=== PATIENT | female | born 1985 | race Caucasian/White ===

== ENCOUNTER 2017-04-22 11:09 | Inpatient (IN) | payer BC ==
[2017-04-22] MEDS ORDERED: LIDOCAINE HCL 50 ML VIAL PERI PRN (12:04)
[2017-04-22] MEDS ORDERED: RINGER'S SOLUTION,LACTATED 1,000 ML IV ONE (12:04)
[2017-04-22] MEDS: DEXTROSE 5%-LACTATED RINGERS 1,000 ML IV PRN ×2 (12:41→17:23)
[2017-04-22] MEDS ORDERED: OXYTOCIN/DEXTROSE 5%-WATER 30 UNITS/500 ML BAG IV ONE ×2 (13:00→21:35)
--- NOTE | 2017-04-22 13:39 | PN ---
Progess Note - Interim Narrative: 04/22/17 13:37 Patient rating her contractions 2 out of 10. Vital signs stable. FHT: 130 baseline, reassuring Contractions irregular Cervix: 09/10/-2, Smith bulb inserted and filled with 60 mL of sterile saline around 1230. Impression: Intrauterine at 41-1/7 weeks induction of labor for post dates with nonreassuring antepartum testing. Plan: Augment with low-dose Pitocin.
[2017-04-22] MEDS ORDERED: ONDANSETRON HCL/PF 2 MG/ML VIAL IV PRN (16:45)
[2017-04-22] MEDS ORDERED: BUPIVACAINE HCL/0.9 % NACL/PF 250 ML EP PRN (16:45)
[2017-04-22] MEDS ORDERED: NALOXONE HCL 1 MG/1 ML SYRG IV PRN (16:45)
[2017-04-22] MEDS ORDERED: fentaNYL CITRATE/PF 50 MCG/ML AMPUL IT SCH (16:45)
--- NOTE | 2017-04-22 16:50 | OR ---
Anesthesia Pre Procedure Eval Date of Service: 04/22/17 Pre Procedure Evaluation: Last Vital Signs Temp 36.5 C 04/30/16 13:33 Pulse Resp BP 152/76 04/30/16 13:33 Pulse Ox Anesthesia Pre Procedure Evaluation Heart Rate: 71 Blood Pressure: 107/71 Temperature: 36.5C Respiratory Rate: 16 SaO2: 99 DATE: 07/01/2017 TIME: 1645 INDICATIONS: Active labor, labor pain PAST MEDICAL HISTORY: Multipara patient in active labor requesting labor analgesia currently at 6 cm dilatation History of GERD: No History of smoking: No History of sleep apnea: No EXAM: Heart regular; lungs clear ASSESSMENT OF MEDICAL STATUS: Appropriate candidate for labor analgesia PLANNED PROCEDURE: Combination spinal epidural for labor analgesia Home Medications: HOME MEDICATIONS Ascorbic Acid [Vitamin C] 1,000 mg PO DAILY 04/22/17 [Last Taken Unknown] Calcium Carbonate [Calcium] 500 mg PO DAILY 04/22/17 [Last Taken Unknown] Ferrous Sulfate [Iron] 325 mg PO DAILY 04/22/17 [Last Taken Unknown] L.acidoph,Paracasei, B.lactis [Probiotic] 1 each PO DAILY 04/22/17 [Last Taken Unknown] [place]-3 Fatty Acids [[place]-3] 1,000 mg PO DAILY 04/22/17 [Last Taken Unknown] Vits96/Iron Fum/Folic [ S] 1 tab PO DAILY 04/22/17 [Last Taken Unknown]
[2017-04-22] MEDS ORDERED: fentaNYL CITRATE/PF 50 MCG/ML AMPUL ONE (16:55)
--- NOTE | 2017-04-22 17:10 | OR ---
Anesthesia Procedure Note - Anesthesia Procedure Note Date of Service: 04/22/17 Narrative: Vital Signs - Last Taken Temp 36.5 C 04/30/16 13:33 Pulse Resp BP 152/76 04/30/16 13:33 Pulse Ox 04/22/17 17:08 ANESTHESIA PROCEDURE NOTE Date of Procedure: 04/22/2017 Time of procedure: 1645. Performed by: JOEL Evans CRNA, MSN Bank Note Designer: Rohini Sifuentes RN. Preprocedure diagnosis: Active labor, labor pain. Post procedure diagnosis: Same. Procedure:Epidural for labor analgesia L4 5. Indications: Labor pain. Findings: See below. Details of the procedure: The patient was placed on the side of the bed in sitting positionand prepped with DuraPrep then draped in a sterile fashion. Lidocaine 1% was infiltrated to the skin and subcutaneous tissues at the level of the for 5 interspace. An 18-gauge Touhy needle was used to approach the epidural space with loss of resistance technique. Once loss of resistance was achieved a 24-gauge Pencan needle was passed through the epidural needle and CSF was contacted. After CSF returned fentanyl 20 mcg of fentanyl was injected in the spinal needle was removed the epidural catheter was then threaded approximately 4 cm in the epidural needle was removed. The catheter was taped in place and after careful aspiration 3 mL of 1.5% lidocaine with 1-200,000 epinephrine was injected without change in maternal heart rate or sensorium. . EBL: Minimal. Fluids: N/A. Specimen: N/A. Post procedure condition: The patient tolerated the procedure well with good relief. No complications were noted. Thank you for this consultation. Mark Rosas CRNA, WEIGHT CHECKER, MSN
[2017-04-22] MEDS ORDERED: SENNOSIDES 8.6 MG TABLET PO PRN (21:35)
[2017-04-22] MEDS ORDERED: oxyCODONE HCL/ACETAMINOPHEN 1 TAB TABLET PO PRN ×2 (21:35)
[2017-04-22] MEDS ORDERED: BENZOCAINE/MENTHOL 81 SPRAY CAN TP PRN (21:35)
[2017-04-22] MEDS ORDERED: BISACODYL 10 MG SUPP.RECT RC PRN (21:35)
[2017-04-22] MEDS ORDERED: GLYCERIN/WITCH HAZEL LEAF 40 APPL BOX TP PRN (21:35)
[2017-04-22] MEDS ORDERED: HYDROCORTISONE 30 APPL TUBE TP PRN (21:35)
--- NOTE | 2017-04-22 21:41 | OR ---
Operative Report - Dictated Report Narrative: Spontaneous vaginal delivery of viable male at 2115 on 04/22/2017 with Apgars 9 and 9, weighing 3736 g. Nuchal cord 1. Body cord 1. Cord clamping delayed approximately 1 minute Placenta delivered complete, intact, with three vessel cord Estimated blood loss: less than 50 ml Lacerations: None
[2017-04-23] MEDS: IBUPROFEN 800 MG TABLET PO PRN ×3 (02:06→21:12)
[2017-04-23] MEDS: LACTOBACILLUS ACIDOPHILUS 100 CAP BTL PO SCH (08:21)
[2017-04-23] MEDS: PRENATAL VITS96/IRON FUM/FOLIC 1 TAB TABLET PO SCH (08:22)
[2017-04-23] MEDS: CALCIUM CARBONATE 500 MG TAB.CHEW PO SCH (08:22)
[2017-04-23] MEDS: FERROUS SULFATE 325 MG TABLET PO SCH (08:22)
[2017-04-23] MEDS: OMEGA-3 FATTY ACIDS 1 CAP CAPSULE PO SCH (08:22)
[2017-04-23] MEDS: DOCUSATE SODIUM 100 MG CAPSULE PO SCH ×2 (08:22→21:13)
[2017-04-23] MEDS: ASCORBIC ACID 500 MG TABLET PO SCH (08:24)
--- NOTE | 2017-04-23 08:45 | PN ---
Subjective - Date and Time Seen Date: 04/23/17 Time: 08:45 Objective - Vitals Vitals: Last Vital Signs Temp 36.1 C L 04/23/17 07:29 Pulse 57 L 04/23/17 07:29 Resp 16 04/23/17 07:29 BP 113/69 04/23/17 07:29 Pulse Ox 99 04/23/17 07:29 Patient denies complaints. Lochia wnl Abdomen - soft, nontender Uterus - firm, at umbilicus - 1 No calf tenderness Impression: day #1 - s/p spontaneous vaginal delivery. Plan: Continue routine care Cauti Physician Documentation - Urinary Catheter Management Uretheral (Smith) Date of Insertion: 04/22/17 Time of Insertion: 17:30 Date of Removal: 04/22/17 Time of Removal: 21:05
[2017-04-24 08:03] VITALS: BP 119/70
[2017-04-24] MEDS: ASCORBIC ACID 500 MG TABLET PO SCH (08:32)
[2017-04-24] MEDS: FERROUS SULFATE 325 MG TABLET PO SCH (08:32)
[2017-04-24] MEDS: OMEGA-3 FATTY ACIDS 1 CAP CAPSULE PO SCH (08:32)
[2017-04-24] MEDS: PRENATAL VITS96/IRON FUM/FOLIC 1 TAB TABLET PO SCH (08:32)
[2017-04-24] MEDS: DOCUSATE SODIUM 100 MG CAPSULE PO SCH (08:32)
[2017-04-24] MEDS: LACTOBACILLUS ACIDOPHILUS 100 CAP BTL PO SCH (08:33)
[2017-04-24] MEDS: CALCIUM CARBONATE 500 MG TAB.CHEW PO SCH (08:33)
--- NOTE | 2017-04-24 09:08 | PN ---
Subjective - Date and Time Seen Date: 04/24/17 Time: 09:08 Objective - Vitals Vitals: Last Vital Signs Temp 36.6 C 04/24/17 07:45 Pulse 56 L 04/24/17 07:45 Resp 18 04/24/17 07:45 BP 119/70 04/24/17 07:45 Pulse Ox 100 04/24/17 07:45 Patient denies complaints. Lochia wnl Abdomen - soft, nontender Uterus - firm, at umbilicus - 2 No calf tenderness Impression: day #2 - s/p spontaneous vaginal delivery. Plan: Routine discharge instructions Cauti Physician Documentation - Urinary Catheter Management Uretheral (Smith) Date of Insertion: 04/22/17 Time of Insertion: 17:30 Date of Removal: 04/22/17 Time of Removal: 21:05
== END 2017-04-24 11:55 | disposition home or self-care (01) | DRG 775 ==
LOC: OB 11:09
PROVIDERS: ADMIT Obstetrics & Gynecology; ATTEND Obstetrics & Gynecology
PROC: 10E0XZZ Delivery of Products of Conception, External Approach (ICD-10-PCS; principal; 2017-04-22)
PROC: 4A1HXCZ Monitoring of Products of Conception, Cardiac Rate, External Approach (ICD-10-PCS; 2017-04-22)
PROC: 3E033VJ Introduction of Other Hormone into Peripheral Vein, Percutaneous Approach (ICD-10-PCS; 2017-04-22)
PROC: 00HU33Z Insertion of Infusion Device into Spinal Canal, Percutaneous Approach (ICD-10-PCS; 2017-04-22)
DX: O48.0 Post-term pregnancy (principal); O99.02 Anemia complicating childbirth; D50.8 Other iron deficiency anemias; O69.81X0 Labor and delivery complicated by cord around neck, without compression, not applicable or unspecified; O76 Abnormality in fetal heart rate and rhythm complicating labor and delivery; Z3A.41 41 weeks gestation of pregnancy; Z37.0 Single live birth

== ENCOUNTER 2017-08-28 22:30 | Emergency (ER) | payer BC ==
--- NOTE | 2017-08-28 22:52 | ERNOTE ---
Dyspnea - General Presenting Symptoms: shortness of breath Time Seen by Provider: 08/28/17 22:44 Source: patient Exam Limitations: no limitations - Immun/Allergies/Home Medications Immunizations: IMMUNIZATION HX Immunizations Up to Date Yes History of Influenza Vaccine No Hx Pneumococcal Vaccination No Allergies/Adverse Reactions: Allergies sulfamethoxazole [From Bactrim] Allergy (Verified 08/28/17 22:37) trimethoprim [From Bactrim] Allergy (Verified 08/28/17 22:37) Home Medications: HOME MEDICATIONS Ascorbic Acid [Vitamin C] 1,000 mg PO DAILY 04/22/17 [Last Taken Unknown] Calcium Carbonate [Calcium] 500 mg PO DAILY 04/22/17 [Last Taken Unknown] Ferrous Sulfate [Iron] 325 mg PO DAILY 04/22/17 [Last Taken Unknown] L.acidoph,Paracasei, B.lactis [Probiotic] 1 each PO DAILY 04/22/17 [Last Taken Unknown] [place]-3 Fatty Acids [[place]-3] 1,000 mg PO DAILY 04/22/17 [Last Taken Unknown] Vits96/Iron Fum/Folic [ S] 1 tab PO DAILY 04/22/17 [Last Taken Unknown] Ibuprofen [Motrin] 200 - 800 mg PO Q6H PRN #100 tab 04/23/17 [Last Taken Unknown ] - History of Present Illness Narrative: shortness of breath for months, worse over the past few days. Has seen cardiology and has echo scheduled at the end of this month. Severity: moderate Modifying Factors - (Improves): Reports: rest Modifying Factors (Worsens): Reports: activity Associated Symptoms-Dyspnea: Reports: chest pain/discomfort - pinching sensation in the upper sternal area, 10/19. Denies: fever/chills, sweating Review of Systems - Review of Systems Constitutional: Absent: recent illness EYE: Present: no symptoms reported ENT: Present: no symptoms reported Respiratory: Present: See HPI. Absent: cough Cardiology: Present: chest pain. Absent: palpitations, syncope Gastrointestinal/Abdominal: Absent: nausea, vomiting Genitourinary: Present: no symptoms reported Musculoskeletal: Absent: back pain, muscle pain Skin: Present: no symptoms reported Neurological: Present: no symptoms reported Endocrine: Present: no symptoms reported Hematologic/Lymphatic: Present: no symptoms reported Psych: Present: no symptoms reported - Patient's Past Medical History Patient History - Medical: No pertinent hx Patient History - Cardiac/Respiratory: No pertinent hx Patient History - Cancer: No Hx of Cancer Patient History - Surgical Procedures: No surgical history Patient History - Other: None LMP (females 10-50): other - Social History Living Situations: home Psych History: No pertinent hx Smoking Status: Former smoker Alcohol Use: none Drug Use: none - Immunizations Immunizations Up to Date: Yes Hx Pneumococcal Vaccination: No History of Influenza Vaccine: No Physical Exam - Physical Exam General Appearance: Present: wd/wn, alert, no apparent distress Head Exam: Present: normal inspection, no evidence of injury Respiratory: Present: no respiratory distress, normal breath sounds, no accessory muscle use Cardiovascular/Chest: Present: regular rate, rhythm, no murmur, normal peripheral pulses Back Exam: Present: normal inspection, normal range of motion, no CVA tenderness Extremity Exam: Present: normal inspection, normal range of motion Neurological Exam: Present: alert, oriented, normal mood/affect Skin Exam: Present: normal color, warm/dry Lymphatic Exam: Present: no adenopathy ED Progress - Results and Orders Patient's Lab Results:: I have reviewed the patient's lab results. Results and Orders: Laboratory Tests 08/29/17 08/29/17 00:20 00:20 WBC 5.8 Hgb 13.1 Hct 37.5 Plt Count 248 Sodium 141 Potassium 3.8 Chloride 107 H Carbon Dioxide 26.7 BUN 20 Creatinine 0.81 Random Glucose 95 Calcium 9.2 Total Bilirubin 0.3 AST 18 ALT 23 Alkaline Phosphatase 106 Total Protein 7.8 Albumin 4.1 - Vital Signs Patient's Vital Signs:: I have reviewed the patient's vital signs. Vital Signs: Vital Signs 08/28/17 08/28/17 22:33 22:42 Temperature 37.0 C Pulse Rate 72 75 Respiratory 17 Rate Blood Pressure 142/84 O2 Sat by Pulse 100 Oximetry - X-Ray X-Ray #1 X-Ray: chest Interpretation: Interp. by me X-ray Comments: No infiltrate or effusion, no pneumothorax. - Progress/Reassessment Chief Complaint: Dyspnea Departure Clinical Impression: Shortness of breath - Departure Disposition: Home Follow Up Needed Condition: Good Additional Instructions: Follow up with your regular doctor and specialists as scheduled. Return to ER if symptoms worsen.
[2017-08-29 00:25] LABS: Hematocrit 37.5 % (37.0-47.0); Hemoglobin 13.1 gm/dL (12.5-16.0); Mean Cell Volume 88.2 fl (78-100); Mean Corpuscular Hemoglobin 30.8 pg (27-31); Mean Corpuscular Hgb Conc 34.9 g/dl (32-36); Mean Platelet Volume 9.8 fl (6.0-9.5); Neutrophil % 52.2 % (42-75.0); Platelet Count 248 K/mm3 (150-450); Red Blood Count 4.25 M/mm3 (4.2-5.4); Red Cell Distribution Width 11.6 % (11.5-14.0); White Blood Count 5.8 K/mm3 (4.0-10.5)
[2017-08-29 00:38] LABS: Albumin * 4.1 gm/dl (3.4-5.0); Anion Gap 11.1 mmol/L (6.8-13.8); BUN/Creatinine Ratio 24.7 (9.0-21.6); Bilirubin, Total 0.3 mg/dL (0.0-1.1); Ca. Corrected For Albumin 8.8 mg/dL (8.4-10.2); Calcium * 9.2 mg/dL (7.9-10.9); Carbon Dioxide 26.7 mmol/L (24-32.6); Potassium 3.8 mmol/L (3.4-4.6); Total Protein 7.8 gm/dL (6.2-8.2)
[2017-08-29 01:23] VITALS: BP 136/72
== END 2017-08-29 01:21 | disposition home or self-care (01) ==
LOC: ER 22:30
DX: R06.02 Shortness of breath (principal); Z87.891 Personal history of nicotine dependence